=== PATIENT | female | born 1970 | race American Indian/Alaskan Native ===

== ENCOUNTER 2018-01-28 23:29 | Emergency (ER) | payer OTHER, SELFPAY ==
[2018-01-28 23:40] VITALS: BP 170/92; PULSE 78; RESP 17; TEMP 36.8; O2SAT 98; BMI 43.0
--- NOTE | 2018-01-29 00:14 | ED_ITS ---
HPI - Abdominal Pain General Chief Complaint: Abdominal Pain Stated Complaint: right side pain x1 day Time Seen by Provider: 01/28/18 23:35 Source: patient Mode of arrival: ambulatory Limitations: no limitations History of Present Illness HPI narrative: 47-year-old female, nonsmoker presents with her in the chief complaint episodic right flank pain which is off and on for quite some time. She states her pain is worse with motion and use of her right arm and improves with rest. She denies nausea, vomiting or diarrhea. 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 She denies any rash. Her gallbladder is surgically removed MD complaint: abdominal pain Onset (ago): week(s) Pain Consistency: intermittent Location: R flank Severity: moderate Quality: cramping Migration to: no migration Relieving factors: rest Exacerbating factors: movement Associated symptoms: denies other symptoms Related Data Previous Rx's Medication Instructions Recorded PRAZOSIN HYDROCHLORIDE (PRAZOSIN 1 mg PO QHS #30 02/03/11 HCL) albuterol sulfate [Ventolin HFA] 0.09 mg IH Q4H #1 02/03/11 Citalopram Hydrobromide (CELEXA) 20 mg PO QDAY #300 ml 02/18/11 simvastatin 20 mg PO QHS #30 02/18/11 alprazolam [Xanax] 0.25 mg PO Q8H #10 03/03/11 fluticasone [Flovent HFA] 1 puff INH BIDRT #1 03/05/11 polyethylene glycol 3350 [Miralax] 17 gm PO QDAY #14 gm 11/29/16 Allergies Allergy/AdvReac Type Severity Reaction Status Date / Time diazepam [From VALIUM] Allergy Unknown Verified 01/28/18 23:40 fluoxetine [From PROZAC] Allergy Unknown Verified 01/28/18 23:40 iodine [IODINE] Allergy Unknown Verified 01/28/18 23:40 latex [LATEX] Allergy Unknown Verified 01/28/18 23:40 lorazepam [LORAZEPAM] Allergy Unknown Verified 01/28/18 23:40 padimate a [PADIMATE A] Allergy Unknown Verified 01/28/18 23:40 petrolatum,white Allergy Unknown Verified 01/28/18 23:40 [From PETROLEUM JELLY] promethazine [From PHENERGAN] Allergy Unknown Verified 01/28/18 23:40 Sulfa (Sulfonamide Allergy Unknown Verified 01/28/18 23:40 Antibiotics) [SULFA (SULFONAMIDE ANTIBIOTICS)] Review of Systems Review of Systems All systems reviewed & are unremarkable except as noted in HPI and below Constitutional Denies chills, Denies fever(s), Denies lethargy and Denies weakness Eyes Denies change in vision, Denies eye discharge, Denies irritation and Denies loss of vision ENT Ears, Nose, Mouth, and Throat: Denies change in voice, Denies neck pain and Denies sore throat Cardiovascular Denies chest pain, Denies irregular heart rhythm, Denies lightheadedness, Denies palpitations, Denies dyspnea, Denies dyspnea on exertion and Denies orthopnea Respiratory Denies cough, Denies dyspnea, Denies dyspnea on exertion and Denies wheezing Gastrointestinal Gastrointestinal: Denies abdominal pain, Denies change in bowel habits, Denies diarrhea, Denies nausea and Denies vomiting Genitourinary Denies hematuria, Denies flank pain, Denies urinary incontinence and Denies urinary urgency Musculoskeletal Denies neck pain Comments: R flank pain Integumentary/Breasts Denies pruritus, Denies erythema, Denies rash and Denies wounds Neurologic Denies confusion, Denies loss of vision and Denies weakness Psychiatric Denies anxiety, Denies confusion, Denies depression, Denies homicidal ideation and Denies suicidal ideation Endocrine Denies palpitations Hematologic/Lymphatic Denies easy bruising Allergic/Immunologic Denies wheezing [facility] Social History Smoking Status: Never smoker Exam Narrative Exam Narrative: GEN: AOx3 and in mild distress EYES: Pupils are equal, round, and reactive to light and accommodation. Extraoccular muscles are intact bilaterally. There is no subconjunctival hemorrhage or exudate. CHEST: Lungs are clear to auscultation bilaterally and free of wheezes, rales, or rhonchi. Heart rate is regular rhythm, there are no murmurs, clicks, rubs, or gallops. There is no chest wall tenderness. ABD: Abdomen is soft and tender along R flank, worse with palpation. There is no guarding or rebound. Bowel sounds are normal in all 4 quadrants. There is no mass or organomegaly. EXT: Full painless ROM of all extremities with no loss of sensation or strength. SKIN: Warm, pink, and dry. No erythema or rash Initial Vital Signs Initial Vital Signs: Vital Signs Temperature 98.3 F 01/28/18 23:40 Pulse Rate 78 01/28/18 23:40 Respiratory Rate 17 01/28/18 23:40 Blood Pressure 170/92 H 01/28/18 23:40 Pulse Oximetry 98 01/28/18 23:40 Course Orders Ordered: ED Orders 01/29/18 00:17 Complete Blood Count AUTO DIFF Stat Comprehensive Metabolic Panel Stat Reevaluation(s) Reevaluation #1: patient refuses pain medications Vital Signs - 8 hr 01/28/18 23:40 01/29/18 01:15 Temperature 98.3 F Pulse Rate 78 63 Respiratory Rate 17 18 Blood Pressure 170/92 H 118/60 Pulse Oximetry 98 98 MDM - Abdominal Pain Lab Data Result diagrams: 01/29/18 00:17 01/29/18 00:17 Lab Results 01/29/18 01/29/18 Range/Units 00:17 00:17 WBC 8.6 (4.5-11.0) X10^3/uL RBC 4.18 (4.0-5.2) X10^6/uL Hgb 12.3 (12.0-16.0) g/dL Hct 35.3 L (36-46) % MCV 84.5 (80-100) fL MCH 29.3 (26-34) PG MCHC 34.7 (30-36) % RDW 13.6 (11.6-14.8) % Plt Count 234 (150-400) X10^3/uL Neut % (Auto) 59.0 (50-75) % Lymph % (Auto) 31.8 (25-40) % [place] % (Auto) 6.3 (3-14) % Eos % (Auto) 1.5 L (2-4) % Baso % (Auto) 1.4 (0-2) % Neut # (Auto) 5100 (2735-2151) /uL Sodium 144 (137-145) mmol/L Potassium 3.4 (3.4-5.1) mmol/L Chloride 106 (98-107) mmol/L Carbon Dioxide 28 (22-32) mmol/L BUN 10 (7-17) mg/dL Creatinine 0.70 (0.52-1.04) mg/dL Estimated GFR > 60.0 (>60) mL/min BUN/Creatinine Ratio 14.3 (6-22) Glucose 107 H (70-100) mg/dL Calcium 9.0 (8.4-10.2) mg/dL Total Bilirubin 0.4 (0.2-1.3) mg/dL AST 25 (14-36) IU/L ALT 36 (9-52) IU/L Alkaline Phosphatase 85 (38-126) U/L Total Protein 7.3 (6.3-8.2) g/dL Albumin 4.2 (3.5-5.0) g/dL Globulin 3.1 (1.7-4.1) g/dL Albumin/Globulin Ratio 1.4 (1.0-2.8) Point of care testing: Urine Dip Bedside Urine Glucose Negative Bedside Urine Bilirubin - Negative Bedside Urine Ketone - Negative Urine Specific [place] 1.025 Bedside Urine Occult Blood - Negative Bedside Urine pH 6.0 Bedside Urine Protein - Negative Bedside Urine Urobilinogen - Negative Bedside Urine Nitrite - Negative Bedside Urine Leukocytes - Negative Esterase Discharge Plan Departure Patient Disposition: Home Clinical Impression: Acute flank pain Discharge Date/Time: 01/29/18 01:15 Interventions: ED Discharge Assessment Last Done: 01/29/18 01:15 Instructions: DI for Flank Pain Activity Restrictions/Additional Instructions: *You have been diagnosed with [ acute on chronic right flank pain, likely musculoskeletal ] *What to do: *Take medications as directed: Tylenol or Motrin for pain, in addition to heating pads *Follow up with your primary care provider in 2-3 days, call for an appointment. Let them know you were seen in the Emergency Department and that we ask that you be seen in follow up *Return to ER if you should have any new, worsening or concerning symptoms Prescriptions: No Action PRAZOSIN HYDROCHLORIDE (PRAZOSIN HCL) 1 mg PO QHS Qty: 30 RF: 2 albuterol sulfate [Ventolin HFA] 90 MCG/PUFF HFA aerosol inhaler 0.09 mg IH Q4H Qty: 1 RF: 3 Citalopram Hydrobromide (CELEXA) 20 mg PO QDAY Qty: 300 RF: 1 simvastatin 20 MG tablet 20 mg PO QHS Qty: 30 RF: 2 alprazolam [Xanax] 0.5 MG tablet 0.25 mg PO Q8H Qty: 10 RF: 0 fluticasone [Flovent HFA] 12 GM HFA aerosol inhaler 1 puff INH BIDRT Qty: 1 RF: 2 polyethylene glycol 3350 [Miralax] 17 GM powder in packet 17 gm PO QDAY Qty: 14 RF: 0 Referrals: Janina Littlejohn ARNP [Primary Care Provider] -
[2018-01-29 00:31] LABS: Add Manual Diff / Slide Review NO; Basophils Percent Auto 1.4 % (0-2); Eosinophils Percent Auto 1.5 % (2-4); Hematocrit 35.3 % (36-46); Hemoglobin 12.3 g/dL (12.0-16.0); Lymphocytes Percent Auto 31.8 % (25-40); Mean Corpuscular HGB Conc 34.7 % (30-36); Mean Corpuscular Hemoglobin 29.3 PG (26-34); Mean Corpuscular Volume 84.5 fL (80-100); Monocytes Percent Auto 6.3 % (3-14); Neutrophils Absolute Auto 5100 /uL (3000-5900); Platelet Count 234 X10^3/uL (150-400); Red Blood Cell Count 4.18 X10^6/uL (4.0-5.2); Red Cell Distribution Width 13.6 % (11.6-14.8); White Blood Cell Count 8.6 X10^3/uL (4.5-11.0)
[2018-01-29 01:00] LABS: Alanine Aminotransferase 36 IU/L (9-52); Albumin 4.2 g/dL (3.5-5.0); Albumin Globulin Ratio 1.4 (1.0-2.8); Alkaline Phosphatase 85 U/L (38-126); Aspartate Aminotransferase 25 IU/L (14-36); BUN Creatinine Ratio 14.3 (6-22); Bilirubin Total 0.4 mg/dL (0.2-1.3); Blood Urea Nitrogen 10 mg/dL (7-17); Carbon Dioxide 28 mmol/L (22-32); Chloride 106 mmol/L (98-107); Estimated Glomerular Filt Rate > 60.0 mL/min (>60); Globulin 3.1 g/dL (1.7-4.1); Glucose 107 mg/dL (70-100); HEMOLYSIS < 15 (0-50); Potassium 3.4 mmol/L (3.4-5.1); Sodium 144 mmol/L (137-145); Total Protein 7.3 g/dL (6.3-8.2)
[2018-01-29 01:15] VITALS: BP 118/60; PULSE 63; RESP 18; O2SAT 98
== END 2018-01-29 01:15 | disposition home or self-care (01) ==
PROVIDERS: Emergency Provider Emergency Medicine; Family Provider Nurse Practitioner; PCP Nurse Practitioner
DX: R10.9 Unspecified abdominal pain (principal)
CPT/HCPCS: 36415; 80053; 81003; 85025; 99282; 99283

== ENCOUNTER 2018-03-30 00:32 | Emergency (ER) | payer OTHER, SELFPAY ==
[2018-03-30 00:40] VITALS: BMI 43.0
[2018-03-30 00:50] VITALS: BP 136/84; PULSE 72; RESP 16; TEMP 36.8; O2SAT 98
--- NOTE | 2018-03-30 00:50 | DI.RAD.S_ITS ---
PROCEDURE: XR ANKLE RT MIN 3V INDICATIONS: twisted it one week ago TECHNIQUE: 3 views of the ankle were acquired. COMPARISON: [facility], CR, XR FOOT 3VW RT, 02/10/2016, 4:41. FINDINGS: Bones: No fractures or dislocations. Ankle mortise is normally aligned. No suspicious bony lesions. Soft tissues: Small tibiotalar joint effusion. Achilles tendon appears normal. Mild soft tissue swelling over the lateral malleolus. IMPRESSION: No fracture or dislocation. Small tibiotalar joint effusion. If clinical symptoms persist or clinical suspicion for pathology is high, MRI is suggested for further evaluation. Dictated by: Sathya Teixeira M.D. on 03/30/2018 at 9:03 Approved by: Sathya Teixeira M.D. on 03/30/2018 at 9:05
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
== END 2018-03-30 01:21 | disposition home or self-care (01) ==
PROVIDERS: Emergency Provider Emergency Medicine; Family Provider Nurse Practitioner; PCP Nurse Practitioner
DX: S93.401A Sprain of unspecified ligament of right ankle, initial encounter (principal); W18.41XA Slipping, tripping and stumbling without falling due to stepping on object, initial encounter; Y99.0 Civilian activity done for income or pay
CPT/HCPCS: 73610; 99282; 99283